=== PATIENT | female | born 1990 ===

== ENCOUNTER → 2022-05-28 09:10 | Outpatient (CLI) | payer OTHER, SELFPAY ==
--- NOTE | ~2022-05-28 | CT_ITS ---
EXAMINATION: CT abdomen pelvis w con INDICATION: History of endometriosis TECHNIQUE: Computed tomographic images of the abdomen and pelvis were obtained after the administrati on of 100 cc of Omnipaque 350 intravenous contrast. The dose-length product (DLP) was 565.98 mGy-cm. Automated exposure control and iterative reconstruction technique were employed. COMPARISON: None available FINDINGS: Minimal dependent atelectasis is present in the lung bases. The heart size is normal. Small nodules in the left lower lobe measuring up to 2 mm likely reflect old granulomatous disease. The li carlos, spleen, pancreas, gallbladder, and adrenal glands are normal. The kidneys are unremarkable. No p athologically enlarged abdominal or pelvic lymph nodes are identified. There is no free intraperitone al gas or evidence of bowel obstruction. There is a 4.4 x 3.6 cm cystic lesion with septation of the right adnexa measuring slightly higher than fluid attenuation. Surgical changes are noted in the rect um. IMPRESSION: 1. Mildly complex cystic lesion of the right adnexa which could reflect a cyst, hemorrhagic cyst, or endometrioma. Follow-up with pelvic ultrasound is recommended. Reviewed, dictated and finalized at location B. [employer] IMPRESSION: 1. Mildly complex cystic lesion of the right adnexa which could reflect a cyst, hemorrhagic cyst, or endometrioma. Follow-up with pelvic ultrasound is recomme nded.
== END ==
PROVIDERS: PCP Physician Assistant
DX: N80.9 Endometriosis, unspecified (principal)
CPT/HCPCS: 74177; Q9967